=== PATIENT | female | born 1975 | race Two or more races ===

== ENCOUNTER → 2017-07-14 | Emergency (ER) | payer OTHER ==
[~2017-07-14] VITALS: Ht 175.3 cm; Wt 79.4 kg
[~2017-07-14] MED LIST: CIPRO500 MG PO; FLAGYL500MG PO; FLEXERIL10 MG PO; FLONASE16 GM NS; FLUCONAZOLE150 MG PO; LEVAQUIN500 MG PO; OSEL75CA PO; TESSALON PERLE100 M1 PO; TRAM1TAB98 PO; VOLTAREM 50 MG PO; ZITHROMAX TRI-500 MG PO; ZITHROMAX200 MG PO; ZITHROMAX500 MG PO; ZYRTEC10 MG PO
== END | disposition home or self-care (01) ==
LOC: ER 11:04
DX: J09.X2 Influenza due to identified novel influenza A virus with other respiratory manifestations (principal); B34.9 Viral infection, unspecified

== ENCOUNTER → 2017-10-20 | Outpatient (CLI) | payer OTHER | END | disposition home or self-care (01) | LOC: PPHC 11:31 | DX: M79.671 Pain in right foot (principal) ==

== ENCOUNTER 2017-12-09 11:08 | Outpatient (CLI) | payer OTHER | END 2017-12-09 11:29 | disposition home or self-care (01) | LOC: RAD 11:08 | DX: M25.561 Pain in right knee (principal) ==

== ENCOUNTER 2018-04-26 08:39 | Outpatient (CLI) | payer OTHER | END 2018-04-26 08:47 | disposition home or self-care (01) | LOC: MAMO-SONO 08:39 | DX: Z12.31 Encounter for screening mammogram for malignant neoplasm of breast (principal) ==

== ENCOUNTER 2018-06-22 10:33 | Outpatient (CLI) | payer OTHER | END 2018-06-22 15:11 | disposition home or self-care (01) | LOC: MRI 10:33 | DX: M25.561 Pain in right knee (principal) | CPT/HCPCS: 73721 ==

== ENCOUNTER 2018-09-14 11:48 | Outpatient (CLI) | payer OTHER | END 2018-09-14 16:38 | disposition home or self-care (01) | LOC: LAB 11:48 | DX: J20.0 Acute bronchitis due to Mycoplasma pneumoniae (principal); J11.1 Influenza due to unidentified influenza virus with other respiratory manifestations ==

== ENCOUNTER → 2019-01-31 | Outpatient (CLI) | payer OTHER | END | disposition home or self-care (01) | LOC: MAMO-SONO 13:03 | DX: Z12.31 Encounter for screening mammogram for malignant neoplasm of breast (principal); Z87.898 Personal history of other specified conditions; N64.4 Mastodynia ==

== ENCOUNTER 2019-03-14 11:42 | Outpatient (CLI) | payer OTHER | END 2019-03-14 14:47 | disposition home or self-care (01) | LOC: SONOGRAMA 11:42 | DX: N92.1 Excessive and frequent menstruation with irregular cycle (principal) ==

== ENCOUNTER 2019-03-16 06:53 | Outpatient (CLI) | payer OTHER | END 2019-03-16 08:33 | disposition home or self-care (01) | LOC: LAB 06:53 | DX: D50.8 Other iron deficiency anemias (principal); E83.51 Hypocalcemia; N92.0 Excessive and frequent menstruation with regular cycle; E78.00 Pure hypercholesterolemia, unspecified; E03.8 Other specified hypothyroidism; D68.8 Other specified coagulation defects; Z32.00 Encounter for pregnancy test, result unknown ==

== ENCOUNTER 2020-03-13 17:14 | Emergency (ER) | payer OTHER ==
[~2020-03-13] VITALS: Ht 162.6 cm; Wt 104.3 kg
[2020-03-13] MEDS ORDERED: ATACAND16 MG PO (17:22)
== END 2020-03-13 22:57 | disposition home or self-care (01) ==
LOC: ER 17:14
DX: K57.32 Diverticulitis of large intestine without perforation or abscess without bleeding (principal)

== ENCOUNTER 2021-03-25 14:39 | Outpatient (CLI) | payer OTHER ==
[~2021-03-25 14:39] MED LIST changes: +ATACAND16 MG PO
== END 2021-03-25 14:54 | disposition home or self-care (01) ==
LOC: MAMO-SONO 14:39
PROVIDERS: ATTEND Specialist
DX: N64.89 Other specified disorders of breast (principal); Z12.31 Encounter for screening mammogram for malignant neoplasm of breast

== ENCOUNTER 2023-03-25 19:51 | Emergency (ER) | payer OTHER ==
[~2023-03-25] VITALS: Ht 162.6 cm; Wt 117.9 kg
[2023-03-25] MEDS ORDERED: NORVASC5 MG PO (19:57)
== END 2023-03-25 20:51 | disposition home or self-care (01) ==
LOC: ER 19:51
DX: S61.357A Open bite of left little finger with damage to nail, initial encounter (principal); W54.0XXA Bitten by dog, initial encounter; Y93.9 Activity, unspecified; Y92.9 Unspecified place or not applicable; Y99.9 Unspecified external cause status

== ENCOUNTER 2024-08-30 09:37 | Outpatient (CLI) | payer OTHER ==
[~2024-08-30 09:37] MED LIST changes: +NORVASC5 MG PO
== END 2024-08-30 09:39 | disposition home or self-care (01) ==
LOC: RAD 09:37
PROVIDERS: ATTEND Physical Medicine & Rehabilitation
DX: M79.641 Pain in right hand (principal); M79.642 Pain in left hand